=== PATIENT | female | born 1965 | race Two or more races ===

== ENCOUNTER 2016-08-05 05:45 | Emergency (ER) | payer OTHER ==
[~2016-08-05] VITALS: Ht 154.9 cm; Wt 57.2 kg
[2016-08-05 05:55] VITALS: BP 113/62
[2016-08-05] MEDS ORDERED: AZITHROMYCIN250 MG ORAL (06:06)
[2016-08-05] MEDS ORDERED: IBUPROFEN600 MG ORAL (06:06)
[2016-08-05] MEDS ORDERED: PREDNISONE20 MG ORAL (06:06)
--- NOTE | 2016-08-05 06:07 | Emergency Room Report ---
History of Present Illness General Chief Complaint: Flu Like Symptoms Source: Patient Present Illness HPI Is a 50-year-old female with a history of asthma with infrequent attack. She presents with coughing, wheezing, shortness of breath, chest tightness and fever. Onset for 4 days. She woke up this morning wheezing after using inhaler. Wynot better now. Also with headache. Coughing is nonproductive in nature. No nausea vomiting. No diaphoresis. No exertional component. Allergies: Coded Allergies: No Known Allergies (Unverified , 08/05/16) Patient History Past Medical History: see triage record, old chart reviewed, asthma Past Surgical History: other Pertinent Family History: none Social History: Denies: smoking Last Menstrual Period: Last month Now: No Immunizations: other Reviewed Nursing Documentation: PMH: Agreed, PSxH: Agreed Nursing Documentation-PMH Past Medical History: No History, Except For Hx Asthma: Yes Review of Systems Constitutional: Reports: fever Eye: Denies: blurred vision, eye pain ENT: Denies: ear pain, nose congestion, throat swelling Respiratory: Reports: cough, shortness of breath, wheezing Cardiovascular: Denies: chest pain, palpitations Gastrointestinal: Denies: abdominal pain, diarrhea, nausea, vomiting Musculoskeletal: Denies: back pain, joint pain Skin: Denies: rash Neurological: Denies: headache, numbness Endocrine: Denies: increased thirst, increased urine Hematologic/Lymphatic: Denies: easy bruising All Other Systems: negative except mentioned in HPI Physical Exam Vital Signs Date Time Temp Pulse Resp B/P Pulse Ox O2 Delivery O2 Flow Rate FiO2 08/05/16 05:49 99.3 94 16 113/62 100 Room Air vitals unremarkable Sp02 EP Interpretation: reviewed, normal General Appearance: well appearing, no apparent distress, alert Head: normocephalic, atraumatic Eyes: bilateral eye EOMI, bilateral eye PERRL ENT: hearing grossly normal, normal pharynx Neck: full range of motion, supple, no meningismus Respiratory: chest non-tender, lungs clear, normal breath sounds Cardiovascular #1: regular rate, rhythm, no murmur Gastrointestinal: normal bowel sounds, non tender, no mass, no organomegaly, no bruit, non-distended Musculoskeletal: back normal, gait/station normal, normal range of motion Psychiatric: mood/affect normal Skin: warm/dry Medical Decision Making Diagnostic Impression: Primary Impression: Upper respiratory infection Qualified Codes: J06.9 - Acute upper respiratory infection, unspecified Additional Impression: Asthma exacerbation ER Course Patient with upper respiratory infection. Most likely viral but the fact that she still having low-grade fever after 4 days is concerning for atypical pneumonia. Will write for antibiotics. We'll also put on steroid. She's or wheezing right now the Last Vital Signs Date Time Temp Pulse Resp B/P Pulse Ox O2 Delivery O2 Flow Rate FiO2 08/05/16 05:49 99.3 94 16 113/62 100 Room Air Status: improved Disposition: HOME, SELF-CARE Condition: Stable Scripts Azithromycin* (ZITHROMAX*) 250 Mg Tablet 250 MG ORAL DAILY, #6 TAB 0 Refills Take two tablets by mouth today, then take one tablet by mouth daily for four days Prov: YAIMA HUYNH M.D. 08/05/16 Prednisone* (PREDNISONE*) 20 Mg Tablet 60 MG ORAL DAILY, #15 TAB Prov: YAIMA HUYNH M.D. 08/05/16 Ibuprofen* (MOTRIN*) 600 Mg Tablet 600 MG ORAL THREE TIMES A DAY, #30 TAB 0 Refills Prov: YAIMA HUYNH M.D. 08/05/16 Additional Instructions: Followup with your Dr. in 2-3 days. Return if symptom worsen. YAIMA HUYNH M.D. Aug 05, 2016 06:07
[2016-08-05 06:24] VITALS: BP 115/65
== END 2016-08-05 06:30 | disposition home or self-care (01) ==
LOC: EMR 06:01
DX: J06.9 Acute upper respiratory infection, unspecified (principal); J45.901 Unspecified asthma with (acute) exacerbation
CPT/HCPCS: 99284